=== PATIENT | female | born 1980 | race Caucasian/White ===

== ENCOUNTER 2017-12-21 12:42 | Emergency (ER) | payer MEDICAID, SELFPAY ==
[2017-12-21 13:33] VITALS: BP 107/77; PULSE 92; RESP 18; TEMP 36.2; O2SAT 98; BMI 31.2
--- NOTE | 2017-12-21 14:23 | HMH.EDUTC ---
[facility] [place] Disposition Clinical Impression: Urinary problem Disposition: Home, Self-Care Condition on Discharge: Good Instructions: Urine Culture Additional Instructions: Follow up with family doctor next week for result of urine culture for treatment as recommended by culture Return if needed If you begin to run fever not easily controlled with Motrin or Tylenol or begin to have confusion go straight to ER Time of Disposition: 14:48 Medical Decision Making - Medical Records Medical records reviewed: Yes: I reviewed the patient's medical records. Vital Signs: 12/21/17 13:33 Temperature 97.2 F L Temperature Source Oral Pulse Rate [Right Brachial] 92 H Respiratory Rate 18 Blood Pressure [Right Arm] 107/77 Blood Pressure Mean [Right Arm] 87 Blood Pressure Source [Right Arm] Automatic Cuff Blood Pressure Position [Right Arm] Sitting 02 Sat by Pulse Oximetry 98 Oxygen Delivery Method Room Air - Lab Data Lab results reviewed: Yes: I reviewed the patient's lab results. - Sai Inquiry Pt receiving controlled substance: No Sai was queried for this patient: No - Reevaluation(s) Time: 14:44 Reevaluation #1: Ua showed no leuks or nitrates in urine that would suggest UTI, however foul odor noted to urine Urine was sent for culture and patient advised to follow up with family doctor next week for culture results that way they would know exactly what was in the urine Patient still denies fever, states that she has pain with urination Patient educated to watch for high fever and confusion if any signs or symptoms of sepsis present to go straight to ER [facility] [place] HPI - General Stated complaint: vomitting sore throat ear pain Mode of Arrival: Ambulatory Source of Information: Patient Limitations: No Limitations Description of Symptoms (Recalled from Triage Doc. by RN): n/v, ear pain, headache, burning when urinating HEENT Symptoms (Recalled from RN notes): Yes (ear pain, headache) Resp Symptoms (Recalled from RN notes): No Skin Symptoms (Recalled from RN notes): No MS Symptoms (Recalled from RN notes): No Functional Status (Recalled from RN notes): na - History of Present Illness Provider Complaint: Patient state that she has been having pain with urination, and feeling like she has to go often State that she has had several UTI in the past and this feels alot like they did States that she has been drinking lots of fluids but it has noted helped - Related Data Home Medications Medication Instructions Recorded Confirmed No Known Home Medications [No 12/21/17 12/21/17 Known Home Medications] Allergies Allergy/AdvReac Type Severity Reaction Status Date / Time No Known Allergies Allergy Verified 12/21/17 13:36 - Worker's Comp Is this a Worker's Comp case?: No Is this an [facility] Worker's Comp?: No Is this a [place] Worker's Comp?: No H History I have reviewed the patient's past medical history: Yes Medical History: Denies:: Cancer, Diabetes Mellitus Type 1, Diabetes Mellitus Type 2, MRSA Amputation: No - Social History Educational Level: Completed High School Alcohol Intake: never - Psychiatric History Expresses thoughts of harming self/others: None Suicide Plan Description: No Plan ROS Obtained: Yes All systems reviewed & no additional complaints - Genitourinary Female Genitourinary: Reports dysuria, Reports urinary frequency Physical Exam - General General appearance: alert, in no apparent distress - Respiratory Respiratory exam: Present: normal lung sounds bilaterally. Absent: respiratory distress - Cardiovascular Cardiovascular exam: Present: regular rate, normal rhythm. Absent: JVD - Abdominal Exam Abdominal exam: Present: soft, normal bowel sounds. Absent: distention, tenderness, guarding - Back Exam Back exam: Present: normal inspection. Absent: tenderness - Neurological Exam Neurological exam: Present: alert, oriented X3
[2017-12-21 14:50] LABS: Apearance,Urine Clear (Clear); Color,Urine Yellow (Yellow)
[2017-12-21 14:51] LABS: Bilirubin,Urine Negative (Negative); Blood, Urine 3+ (Negative); Glucose,Urine (UA) Negative (Negative); Ketones,Urine Negative (Negative); PH,Urine 5.5 (5.0-8.5); Protein,Urine Trace (Negative); Specific Gravity, Urine >= 1.030 (1.005-1.030); UTC Leukocyte Esterase,Urine Negative (Negative); Urobilinogen,Urine 0.2 EU/dl (0.2)
[2017-12-21 14:52] LABS: UTC Nitrate,Urine Negative (Negative)
[2017-12-21 14:54] LABS: UTC Influenza A Antigen Negative (Negative); UTC Influenza B Antigen Negative (Negative)
[2017-12-21 15:01] VITALS: BP 107/77; PULSE 92; RESP 18; TEMP 37
[2017-12-21 18:43] LABS: UTC Influenza A Antigen Negative (Negative); UTC Influenza B Antigen Negative (Negative); UTC Strep Screen (Rapid) Negative (Negative)
== END 2017-12-21 15:03 | disposition home or self-care (01) ==
PROVIDERS: Emergency Provider Nurse Practitioner
DX: R31.9 Hematuria, unspecified (principal)
CPT/HCPCS: 81003; 87086; 87088; 87186; 87804; 87880; 99202; 99203

== ENCOUNTER 2017-12-31 09:38 | Emergency (ER) | payer MEDICAID, SELFPAY ==
[2017-12-31 09:56] VITALS: BP 134/79; PULSE 90; RESP 20; TEMP 36.8; O2SAT 98; BMI 30.7
--- NOTE | 2017-12-31 10:04 | HMH.EDUTC ---
[facility] [place] Disposition Clinical Impression: Sinus headache Sinusitis Qualifiers: Sinusitis location: maxillary Chronicity: unspecified Qualified Code(s): J32.0 - Chronic maxillary sinusitis Disposition: Home, Self-Care Condition on Discharge: Good Instructions: Sinusitis, Sinus Headache Additional Instructions: Take medication as prescribed If symptoms return or worsen follow up with family doctor immediately or straight to the ER Return if needed Follow up with family doctor Prescriptions: Amoxicillin/Potassium Clav [Augmentin 875-125 Tablet] 1 tab PO Q12H #14 tab Fluticasone Propionate [Flonase 50mcg nasal spray 16gm] 2 spr NS DAILY #1 bottle Forms: Work/School Release Time of Disposition: 10:50 Medical Decision Making - Medical Records Medical records reviewed: Yes: I reviewed the patient's medical records. Vital Signs: 12/31/17 09:56 Temperature 98.2 F Temperature Source Temporal Artery Scan Pulse Rate [Radial] 90 Respiratory Rate 20 Blood Pressure [Left Arm] 134/79 Blood Pressure Mean [Left Arm] 97 Blood Pressure Source [Left Arm] Automatic Cuff Blood Pressure Position [Left Arm] Sitting 02 Sat by Pulse Oximetry 98 Oxygen Delivery Method Room Air - Lab Data Lab results reviewed: Yes: I reviewed the patient's lab results. Lab Results 12/31/17 09:50: Influenza Type A Ag Negative, Influenza Type B Ag Negative, Strep Scn Rapid Clinic Negative Orders (Tests/Meds): ED MEDICATIONS Generic Name Dose Route Start Last Admin Trade Name Freq PRN Reason Stop Dose Admin Metoclopramide HCl 10 mg 12/31/17 11:00 Reglan 10mg/2ml Vial IVP 01/30/18 10:59 ACHS CHHAYA Discontinued Medications Generic Name Dose Route Start Last Admin Trade Name Freq PRN Reason Stop Dose Admin Diphenhydramine HCl 25 mg 12/31/17 10:18 12/31/17 10:30 Benadryl 25mg Capsule PO 12/31/17 10:19 25 mg ONCE ONE Administration Ketorolac Tromethamine 60 mg 12/31/17 10:18 12/31/17 10:30 Toradol 60mg/2ml Vial IM 12/31/17 10:19 60 mg ONCE ONE Administration Metoclopramide HCl 10 mg 12/31/17 10:29 12/31/17 10:30 Metoclopramide 10mg Tablet PO 12/31/17 10:30 10 mg ONCE ONE Administration ORDERS Category Date Time Status Strep Screen Confirmation Stat Micro 12/31/17 09:50 Received - Sai Inquiry Pt receiving controlled substance: No Sai was queried for this patient: No - Reevaluation(s) Time: 10:44 Reevaluation #1: Patient state that head ache is now gone after medication and she feels much better State that she still feels tender under her eyes but she feels better and ready to go home [facility] [place] HPI - General Stated complaint: vomiting dizzy youssef Mode of Arrival: Ambulatory Source of Information: Patient Limitations: No Limitations Description of Symptoms (Recalled from Triage Doc. by RN): YOUSSEF/V, COUGH, BODY ACHES X 2 DAYS HEENT Symptoms (Recalled from RN notes): Yes Resp Symptoms (Recalled from RN notes): Yes Skin Symptoms (Recalled from RN notes): No MS Symptoms (Recalled from RN notes): No Functional Status (Recalled from RN notes): NA - History of Present Illness Provider Complaint: Patient state that mother had the flu 2 weeks ago and her daughter was diagnosed yesterday State that she has had a headache for 3 days State that she has taken over the counter Tylenol but it has not helped State that she is having pressure like feeling in her eyes and tender under her eyes State that she has been having body aches and sinus congestion State that she has also had cough and drainage that has continued to get worse - Related Data Previous Rx's Medication Instructions Recorded Amoxicillin/Potassium Clav 1 tab PO Q12H #14 tab 12/31/17 [Augmentin 875-125 Tablet] Fluticasone Propionate [Flonase 2 spr NS DAILY #1 bottle 12/31/17 50mcg nasal spray 16gm] Allergies Allergy/AdvReac Type Severity Reaction Status Date / Time No Known Allergies Allergy Megha
--- NOTE | 2017-12-31 10:13 | ED_ITS ---
[facility] [place] Disposition Clinical Impression: Sinus headache Sinusitis Qualifiers: Sinusitis location: maxillary Chronicity: unspecified Qualified Code(s): J32.0 - Chronic maxillary sinusitis Disposition: Home, Self-Care Condition on Discharge: Good Instructions: Sinusitis, Sinus Headache Additional Instructions: Take medication as prescribed If symptoms return or worsen follow up with family doctor immediately or straight to the ER Return if needed Follow up with family doctor Prescriptions: Amoxicillin/Potassium Clav [Augmentin 875-125 Tablet] 1 tab PO Q12H #14 tab Fluticasone Propionate [Flonase 50mcg nasal spray 16gm] 2 spr NS DAILY #1 bottle Forms: Work/School Release Time of Disposition: 10:50 Medical Decision Making - Medical Records Medical records reviewed: Yes: I reviewed the patient's medical records. Vital Signs: 12/31/17 09:56 Temperature 98.2 F Temperature Source Temporal Artery Scan Pulse Rate [Radial] 90 Respiratory Rate 20 Blood Pressure [Left Arm] 134/79 Blood Pressure Mean [Left Arm] 97 Blood Pressure Source [Left Arm] Automatic Cuff Blood Pressure Position [Left Arm] Sitting 02 Sat by Pulse Oximetry 98 Oxygen Delivery Method Room Air - Lab Data Lab results reviewed: Yes: I reviewed the patient's lab results. Lab Results 12/31/17 09:50: Influenza Type A Ag Negative, Influenza Type B Ag Negative, Strep Scn Rapid Clinic Negative Orders (Tests/Meds): ED MEDICATIONS Generic Name Dose Route Start Last Admin Trade Name Freq PRN Reason Stop Dose Admin Metoclopramide HCl 10 mg 12/31/17 11:00 Reglan 10mg/2ml Vial IVP 01/30/18 10:59 ACHS CHHAYA Discontinued Medications Generic Name Dose Route Start Last Admin Trade Name Freq PRN Reason Stop Dose Admin Diphenhydramine HCl 25 mg 12/31/17 10:18 12/31/17 10:30 Benadryl 25mg Capsule PO 12/31/17 10:19 25 mg ONCE ONE Administration Ketorolac Tromethamine 60 mg 12/31/17 10:18 12/31/17 10:30 Toradol 60mg/2ml Vial IM 12/31/17 10:19 60 mg ONCE ONE Administration Metoclopramide HCl 10 mg 12/31/17 10:29 12/31/17 10:30 Metoclopramide 10mg Tablet PO 12/31/17 10:30 10 mg ONCE ONE Administration ORDERS Category Date Time Status Strep Screen Confirmation Stat Micro 12/31/17 09:50 Received - Sai Inquiry Pt receiving controlled substance: No Sai was queried for this patient: No - Reevaluation(s) Time: 10:44 Reevaluation #1: Patient state that head ache is now gone after medication and she feels much better State that she still feels tender under her eyes but she feels better and ready to go home [facility] [place] [facility] [place] HPI - General Stated complaint: vomiting dizzy youssef Mode of Arrival: Ambulatory Source of Information: Patient Limitations: No Limitations Description of Symptoms (Recalled from Triage Doc. by RN): YOUSSEF/V, COUGH, BODY ACHES X 2 DAYS HEENT Symptoms (Recalled from RN notes): Yes Resp Symptoms (Recalled from RN notes): Yes Skin Symptoms (Recalled from RN notes): No MS Symptoms (Recalled from RN notes): No Functional Status (Recalled from RN notes): NA - History of Present Illness Provider Complaint: Patient state that mother had the flu 2 weeks ago and her daughter was diagnosed
[2017-12-31 10:24] LABS: UTC Influenza A Antigen Negative (Negative); UTC Influenza B Antigen Negative (Negative); UTC Strep Screen (Rapid) Negative (Negative)
[2017-12-31 10:52] VITALS: BP 134/79; PULSE 90; RESP 20; TEMP 36.8; O2SAT 98
== END 2017-12-31 10:57 | disposition home or self-care (01) ==
PROVIDERS: Emergency Provider Nurse Practitioner
DX: J32.0 Chronic maxillary sinusitis (principal)
CPT/HCPCS: 87804; 87880; 96372; 99203

== ENCOUNTER 2018-01-30 10:25 | Emergency (ER) | payer MEDICAID, SELFPAY ==
[2018-01-30 10:32] VITALS: BP 116/71; PULSE 96; RESP 20; TEMP 36.6; O2SAT 98; BMI 30.7
[2018-01-30 10:44] LABS: UTC Influenza A Antigen Negative (Negative); UTC Influenza B Antigen Negative (Negative); UTC Strep Screen (Rapid) Negative (Negative)
--- NOTE | 2018-01-30 11:12 | HMH.EDUTC ---
[facility] [place] Clinical Impression: Viral upper respiratory illness, Vomiting and diarrhea Disposition: Home, Self-Care Condition on Discharge: Good Instructions: Sore Throat, Diarrhea, DI for Vomiting -- Adult, Ondansetron Additional Instructions: * Monitor Temp. Tylenol and/or Ibuprofen as needed. ER if fever is no less than 101 despite alternating Tylenol and Ibuprofen * Encourage fluids, water, Gatorade, powerade, pedialyte if /toddler/or child * Warm salt water gargles for throat irritation *Warm fluids *Sore throat lozenges *Sleep elevated *humidifier or vaporizer Lots of rest Increase fluids, water, Gatorade, powerade *Your throat swab was sent to lab for culture. Those results area typically sent to your primary care physician. Be sure to follow up in 2-3 days if no improvement so they can review those results and treat if necessary If you dont have primary care I recommend you get one, but in the mean time you will have to return to a walk in clinic Follow up IMMEDIATELY for new or worsening of symptoms OR no noticeable improvement over the next 48-72 hours. 911 immediately for any life threatening symptoms such as chest pain or difficulty breathing ? Drink extra fluids with and between meals. If you have difficulty drinking, try very small amounts of water or suck on ice chips. ? Avoid fruit juices, as these do not replace minerals and can actually increase diarrhea. ? Children and adults can use sports drinks to replenish electrolytes. Younger children and infants should use products formulated for children, like oral rehydration solutions. ? Eat food in small amounts and let your stomach recover. ? Get lots of rest. You may feel tired or weak. ? Check with your doctor before taking medications or giving them to children. Never give aspirin to children or teenagers with a viral illness. This can cause Dewayne syndrome, a potentially life-threatening condition. Prescriptions: Ondansetron [Zofran 4mg ODT] 4 mg PO Q8H #20 tab.rapdis Forms: Work/School Release Time of Disposition: 11:22 Medical Decision Making - Medical Records Medical records reviewed: Yes: I reviewed the patient's medical records. - Sai Inquiry Pt receiving controlled substance: No Vital Signs: 01/30/18 10:32 Temperature 97.9 F Temperature Source Temporal Artery Scan Pulse Rate [Brachial] 96 H Respiratory Rate 20 Blood Pressure [Right Arm] 116/71 Blood Pressure Mean [Right Arm] 86 Blood Pressure Source [Right Arm] Automatic Cuff Blood Pressure Position [Right Arm] Sitting 02 Sat by Pulse Oximetry 98 Oxygen Delivery Method Room Air - Lab Data Lab results reviewed: Yes: I reviewed the patient's lab results. Lab Results 01/30/18 10:35: Influenza Type A Ag Negative, Influenza Type B Ag Negative, Strep Scn Rapid Clinic Negative Orders (Tests/Meds): ORDERS Category Date Time Status Strep Screen Confirmation Stat Micro 01/30/18 10:35 Received [facility] [place] HPI - General Stated complaint: Throat & Ear & Body Pain Time Seen by Provider: 01/30/18 11:00 Mode of Arrival: Ambulatory Source of Information: Patient Limitations: No Limitations Description of Symptoms (Recalled from Triage Doc. by RN): WOKE UP WITH A SORE THROAT, BODY ACHES, EAR PAIN AND VOMITING. HEENT Symptoms (Recalled from RN notes): Yes Resp Symptoms (Recalled from RN notes): No Skin Symptoms (Recalled from RN notes): No MS Symptoms (Recalled from RN notes): No Functional Status (Recalled from RN notes): NA - History of Present Illness Provider Complaint: Patient presents with body aches, vomiting, diarrhea, and sore throat since this morning. She denies hematemesis and melena. She denies sick contacts as well. She hasn't taken anything for symptoms and decided to come here on her way to work due to vomiting 5-6 times this morning. - Related Data Previous Rx's Medication Instructions Recorded Ondansetron [Zofran 4mg ODT] 4 mg PO Q8H
--- NOTE | 2018-01-30 11:15 | ED_ITS ---
[facility] [place] Disposition Clinical Impression: Viral upper respiratory illness, Vomiting and diarrhea Disposition: Home, Self-Care Condition on Discharge: Good Instructions: Sore Throat, Diarrhea, DI for Vomiting -- Adult, Ondansetron Additional Instructions: * Monitor Temp. Tylenol and/or Ibuprofen as needed. ER if fever is no less than 101 despite alternating Tylenol and Ibuprofen * Encourage fluids, water, Gatorade, powerade, pedialyte if /toddler/or child * Warm salt water gargles for throat irritation *Warm fluids *Sore throat lozenges *Sleep elevated *humidifier or vaporizer Lots of rest Increase fluids, water, Gatorade, powerade *Your throat swab was sent to lab for culture. Those results area typically sent to your primary care physician. Be sure to follow up in 2-3 days if no improvement so they can review those results and treat if necessary If you don? t have primary care I recommend you get one, but in the mean time you will have to return to a walk in clinic Follow up IMMEDIATELY for new or worsening of symptoms OR no noticeable improvement over the next 48-72 hours. 911 immediately for any life threatening symptoms such as chest pain or difficulty breathing ? Drink extra fluids with and between meals. If you have difficulty drinking, try very small amounts of water or suck on ice chips. ? Avoid fruit juices, as these do not replace minerals and can actually increase diarrhea. ? Children and adults can use sports drinks to replenish electrolytes. Younger children and infants should use products formulated for children, like oral rehydration solutions. ? Eat food in small amounts and let your stomach recover. ? Get lots of rest. You may feel tired or weak. ? Check with your doctor before taking medications or giving them to children. Never give aspirin to children or teenagers with a viral illness. This can cause Dariel?s syndrome, a potentially life-threatening condition. Prescriptions: Ondansetron [Zofran 4mg ODT] 4 mg PO Q8H #20 tab.rapdis Forms: Work/School Release Time of Disposition: 11:22 Medical Decision Making - Medical Records Medical records reviewed: Yes: I reviewed the patient's medical records. - Sai Inquiry Pt receiving controlled substance: No Vital Signs: 01/30/18 10:32 Temperature 97.9 F Temperature Source Temporal Artery Scan Pulse Rate [Brachial] 96 H Respiratory Rate 20 Blood Pressure [Right Arm] 116/71 Blood Pressure Mean [Right Arm] 86 Blood Pressure Source [Right Arm] Automatic Cuff Blood Pressure Position [Right Arm] Sitting 02 Sat by Pulse Oximetry 98 Oxygen Delivery Method Room Air - Lab Data Lab results reviewed: Yes: I reviewed the patient's lab results. Lab Results 01/30/18 10:35: Influenza Type A Ag Negative, Influenza Type B Ag Negative, Strep Scn Rapid Clinic Negative Orders (Tests/Meds): ORDERS Category Date Time Status Strep Screen Confirmation Stat Micro 01/30/18 10:35 Received [facility] [place] HPI - General Stated complaint: Throat & Ear & Body Pain Time Seen by Provider: 01/30/18 11:00 Mode of Arrival: Ambulatory Source of Information: Patient Limitations: No Limitations Description of Symptoms (Recalled from Triage Doc. by RN): WOKE UP WITH A SORE THROAT, BODY ACHES, EAR PAIN AND VOMITING. HEENT Symptoms (Recalled from RN notes): Yes Resp Symptoms (Recalled from RN notes): No Skin Symptoms (Recalled from RN notes): No MS Symp
[2018-01-30 11:28] VITALS: BP 118/74; PULSE 94; RESP 20; TEMP 36.7; O2SAT 98
== END 2018-01-30 11:31 | disposition home or self-care (01) ==
PROVIDERS: Emergency Provider Nurse Practitioner
DX: J06.9 Acute upper respiratory infection, unspecified (principal); R11.10 Vomiting, unspecified; R19.7 Diarrhea, unspecified; F17.210 Nicotine dependence, cigarettes, uncomplicated
CPT/HCPCS: 87804; 87880; 99202

== ENCOUNTER → 2018-07-09 09:34 | Outpatient (CLI) | payer MEDICAID, SELFPAY ==
[2018-07-09 09:51] LABS: Basophils % 0.3 % (0.1-2.0); Eosinophils # 0.2 K/mm3 (0.0-0.4); Eosinophils % 2.3 % (0.1-12.0); Hematocrit 39.3 % (37.0-47.0); Hemoglobin 12.8 g/dL (12.2-16.2); Lymphocytes # 1.4 K/mm3 (0.7-4.5); Lymphocytes % 17.4 K/mm3 (10-50); Mean Corpuscular HGB Conc 32.6 g/dL (31.8-35.4); Mean Corpuscular Hemoglobin 29.5 pg (27.0-31.2); Mean Corpuscular Volume 90.4 fl (81-99); Monocytes # 0.5 K/mm3 (0.1-1.0); Monocytes % 6.5 % (1.7-9.3); Neutrophils # 5.9 K/mm3 (1.8-7.8); Neutrophils % 73.4 % (37.0-80.0); Platelet Count 315 K/mm3 (142-424); Red Blood Count 4.35 M/mm3 (4.20-5.40); Red Cell Distribution Width 12.9 % (11.5-17.5)
[2018-07-09 10:34] LABS: Anion Gap 13.6 mEq/L (5-15); Blood Urea Nitrogen 15 mg/dL (7-18); Calcium 8.6 mg/dL (8.5-10.1); Carbon Dioxide 26 mmol/L (21.0-32.0); Chloride 108 mmol/L (98-107); Creatinine,Serum 0.78 mg/dL (0.55-1.02); Estimated Glomerular Filt Rate 82 ml/min (>60); GFR (African American) 99 ML/MIN (>60); Glucose 116 mg/dL (74-106); Potassium 4.6 mmoL/L (3.5-5.1); Sodium 143 mmol/L (136-145)
== END ==
PROVIDERS: Visit Provider Nurse Practitioner Obstetrics & Gynecology
DX: N92.0 Excessive and frequent menstruation with regular cycle (principal); R10.2 Pelvic and perineal pain; Z01.818 Encounter for other preprocedural examination
CPT/HCPCS: 36415; 80048; 85025

== ENCOUNTER 2021-06-10 21:51 | Emergency (ER) | payer OTHER, SELFPAY ==
[2021-06-10 21:52] VITALS: BP 104/79; PULSE 85; RESP 14; TEMP 36.6; O2SAT 98; BMI 30.4
--- NOTE | 2021-06-10 22:16 | XR_ITS ---
PROCEDURE INFORMATION: Exam: XR Left Elbow Exam date and time: 06/10/2021 10:16 PM Age: 41 years old Clinical indication: Injury or trauma; Fall; Blunt trauma (contusions or hematomas); Injury date: 06/10/2021; Patient HX: Fell landed on left elbow pain now; Additional info: Injury from fall TECHNIQUE: Imaging protocol: XR Left elbow. Views: 3 or more views. COMPARISON: No relevant prior studies available. FINDINGS: Bones/joints: Bones appear intact and normally aligned with normal mineralization. No significant arthritic deformities. Bulging of the posterior fat pad at the elbow suggesting an underlying joint effusion. There are no lytic skeletal lesions seen. Soft tissues: Mild soft tissue edema. No radiopaque foreign bodies. No pathologic soft tissue calcification. IMPRESSION: 1. No acute fracture or dislocation. 2. Elbow joint effusion.
[2021-06-10 23:00] VITALS: BP 103/65; PULSE 65; RESP 16; O2SAT 99
[2021-06-11 00:26] VITALS: BP 109/72; PULSE 64; RESP 16; TEMP 36.6; O2SAT 98
--- NOTE | 2021-06-11 00:32 | HMH.EDUPEXT ---
ED Disposition Clinical Impression: Contusion of elbow, left Qualifiers: Encounter type: initial encounter Qualified Code(s): S50.02XA - Contusion of left elbow, initial encounter Disposition: Home, Self-Care Condition on Discharge: Good Instructions: DI for Elbow Sprain Additional Instructions: see ortho and pcp for follo wup Referrals: Cecilio De León MD [Primary Care Provider] - - Critical Care Critical Care Time: No Attestation: On 06/10/21, the high probability of a clinically significant, sudden or life threatening deterioration of the following system(s) required my full and direct attention, intervention and personal management. The time I documented below is in addition to time spent performing reported procedures but includes the following listed in this critical care notation. Medical Decision Making - Medical Records Medical records reviewed: Yes: I reviewed the patient's medical records. - Sai Inquiry Pt receiving controlled substance: No Vital Signs: 06/10/21 21:52 06/10/21 23:00 06/11/21 00:26 Temperature 97.9 F 97.9 F Temperature Source Oral Oral Pulse Rate 65 64 Pulse Rate [Right Radial] 85 Respiratory Rate 14 16 16 Blood Pressure 103/65 L 109/72 L Blood Pressure [Right Arm] 104/79 L Blood Pressure Mean [Right Arm] 87 Blood Pressure Source Automatic Cuff Blood Pressure Source [Right Arm] Automatic Cuff Blood Pressure Position Sitting Blood Pressure Position [Right Arm] Sitting 02 Sat by Pulse Oximetry 98 99 Oxygen Delivery Method Room Air Room Air Room Air - Lab Data Lab results reviewed: Yes: I reviewed the patient's lab results. Orders (Tests/Meds): ED MEDICATIONS Discontinued Medications Generic Name Dose Route Start Last Admin Trade Name Nav PRN Reason Stop Dose Admin Acetaminophen 1,000 mg 06/10/21 22:24 06/10/21 22:26 Acetaminophen 500mg Tab PO 06/10/21 22:25 1,000 mg ONCE ONE Administration Acetaminophen/Codeine Phosphate 1 gigi 06/11/21 00:17 06/11/21 00:19 Acetaminophen 300mg W/Codeine 30mg Take Home Pack (6) PO 06/11/21 00:18 1 gigi ONCE ONE Administration Ibuprofen 600 mg 06/10/21 22:24 06/10/21 22:26 Ibuprofen 600 Mg Tablet PO 06/10/21 22:25 600 mg ONCE ONE Administration Indomethacin 25 mg 06/11/21 00:17 06/11/21 00:19 Indomethacin 25 Mg Capsule PO 06/11/21 00:18 25 mg ONCE ONE Administration - Radiology Data #1 Image(s): Elbow Image Reviewed: Yes I reviewed the patient's radiology image, Yes I have reviewed radiologist's interpretation Preliminary Findings: Abnormal Medical Decision Narrative: no fx seen - splint and refer to ortho Upper Extremity HPI - General Chief Complaint: Extremity Injury, Upper Stated Complaint: AO 06/10@2130 fell injured L arm Time Seen by Provider: 06/10/21 23:00 Mode of Arrival: Ambulatory Source of Information: Patient, Medical Record Limitations: No Limitations Description of Symptoms (Recalled from ER Triage Doc. by RN): pt slipped on her steps while taking groceries in tonight, landing on her left elbow. Pt denies hitting head. Denies any hip or back pain. Only c/o pain is in left elbow. She denies shoulder or wrist pain. Positive distal pulses present. - History of Present Illness HPI narrative: slip fall with acute lt elbow injury complaint: injury to: left, elbow Onset (ago): hour(s) Other Extremity Injury: Left: elbow Other injuries: none Handedness: right Place: other (formerly [facility]) Severity: moderate Context: fall Associated symptoms: denies other symptoms - Related Data Home Medications Medication Instructions Recorded Confirmed No Known Home Medications 06/11/21 06/11/21 Allergies Allergy/AdvReac Type Severity Reaction Status Date / Time No Known Allergies Allergy Verified 11/06/18 09:27 [facility] History - Hepatitis A Screen Drug use history?: No High risk sexual behaviors?: No History of sexually t
== END 2021-06-11 00:26 | disposition home or self-care (01) ==
PROVIDERS: Emergency Provider Emergency Medicine; PCP Emergency Medicine
DX: S50.02XA Contusion of left elbow, initial encounter (principal); W10.9XXA Fall (on) (from) unspecified stairs and steps, initial encounter; Y92.019 Unspecified place in single-family (private) house as the place of occurrence of the external cause
CPT/HCPCS: 73080; 99283

== ENCOUNTER 2022-09-23 16:17 | Emergency (ER) | payer OTHER, SELFPAY ==
[2022-09-23 16:30] VITALS: BP 114/72; PULSE 123; RESP 18; O2SAT 96
[2022-09-23 16:41] VITALS: BP 114/72; PULSE 102; RESP 20; TEMP 37.8; O2SAT 97; BMI 29.7
[2022-09-23 17:00] VITALS: BP 120/81; PULSE 121; RESP 16; O2SAT 95
[2022-09-23 17:01] LABS: Coronavirus 19, PCR Not Detected (NotDetected); Influenza A, PCR Not Detected (NotDetected); Influenza B, PCR Not Detected (NotDetected)
[2022-09-23 17:05] LABS: Basophils % 0.2 % (0.1-2.0); Eosinophils # 0.2 K/mm3 (0.0-0.4); Hematocrit 42.3 % (37.0-47.0); Hemoglobin 13.4 g/dL (12.2-16.2); Lymphocytes # 0.7 K/mm3 (0.7-4.5); Lymphocytes % 4.5 % (10-50); Mean Corpuscular HGB Conc 31.6 g/dL (31.8-35.4); Mean Corpuscular Hemoglobin 29.3 pg (27.0-31.2); Mean Corpuscular Volume 92.5 fl (81-99); Mean Platelet Volume 7.3 fl (7.4-10.4); Monocytes # 0.5 K/mm3 (0.1-1.0); Monocytes % 2.8 % (1.7-9.3); Neutrophils # 14.8 K/mm3 (1.8-7.8); Neutrophils % 91.4 % (37.0-80.0); Platelet Count 363 K/mm3 (142-424); Red Blood Count 4.58 M/mm3 (4.20-5.40); Red Cell Distribution Width 12.4 % (11.5-17.5); White Blood Count 16.2 K/mm3 (4.8-10.8)
[2022-09-23 17:07] LABS: Chloride 106 mmol/L (98-107); Sodium 137 mmol/L (136-145)
[2022-09-23 17:08] LABS: Potassium 3.8 mmoL/L (3.5-5.1)
[2022-09-23 17:09] LABS: MANUAL DIFFERENTIAL MANUAL DIFFERENTIAL (MANUAL DIFF)
[2022-09-23 17:10] LABS: Alanine Aminotransferase 20 U/L (12-78); Albumin Level 4.2 g/dl (3.5-5.0); Albumin/Globulin Ratio 1.3 (1.1-1.8); Alkaline Phosphatase 104 U/L (38-126); Anion Gap 10.8 mEq/L (5-15); Aspartate Amino Transferase 30 U/L (14-36); Bilirubin,Total 1.1 mg/dl (0.2-1.3); Blood Urea Nitrogen 12 mg/dl (7-17); Calcium 9.1 mg/dl (8.4-10.2); Carbon Dioxide 24 mmol/L (22.0-30.0); Creatinine Clearance Estimated 88 mL/min (50-200); Estimated Glomerular Filt Rate 68 ml/min (>60); GFR (African American) 83 ML/MIN (>60); Globulin 3.2 g/dL (1.3-3.2); Glucose 113 mg/dl (74-100); Total Protein,Serum 7.4 g/dl (6.3-8.2)
[2022-09-23 17:31] VITALS: BP 117/69; PULSE 121; RESP 20; O2SAT 98
[2022-09-23 17:58] LABS: Lymphocytes % 7 % (10-50); Neutrophils % 89 % (42-76); Platelet Estimate Normal; RBC Morphology Normal; Total Cells Counted 100
[2022-09-23 18:00] VITALS: BP 113/60; PULSE 117; RESP 18; O2SAT 94
--- NOTE | 2022-09-23 18:20 | CT_ITS ---
PROCEDURE INFORMATION: Exam: CT Abdomen And Pelvis With Contrast Exam date and time: 09/23/2022 6:31 PM Age: 42 years old Clinical indication: Nausea and vomiting; Prior surgery; Surgery type: Tubal; Additional info: N/v/d TECHNIQUE: Imaging protocol: Computed tomography of the abdomen and pelvis with contrast. Radiation optimization: All CT scans at this facility use at least one of these dose optimization techniques: automated exposure control; mA and/or kV adjustment per patient size (includes targeted exams where dose is matched to clinical indication); or iterative reconstruction. Contrast material: ISOVUE; Contrast volume: 75 ml; Contrast route: IV; [facility] pelvis wo con 06/19/2018 9:12 AM FINDINGS: Liver: Normal. No mass. Gallbladder and bile ducts: Normal. No calcified stones. No ductal dilation. Pancreas: Normal. No ductal dilation. Spleen: Normal. No splenomegaly. Adrenal glands: Normal. No mass. Kidneys and ureters: Normal. No hydronephrosis. Stomach and bowel: Diffuse colonic wall thickening which could be due to pancolitis or lack of distention more likely. No small bowel obstruction. Appendix: Appendectomy. Intraperitoneal space: Unremarkable. No free air. No significant fluid collection. Vasculature: Unremarkable. No abdominal aortic aneurysm. Lymph nodes: Unremarkable. No enlarged lymph nodes. Urinary bladder: Unremarkable as visualized. Reproductive: Hysterectomy. Bones/joints: Unremarkable. No acute fracture. Soft tissues: Unremarkable. IMPRESSION: 1. Low-grade colitis versus lack of distention of the colon. 2. Normal kidneys. 3. Gallbladder normal.
--- NOTE | 2022-09-23 18:25 | PC.NURSE ---
pt to radiology
[2022-09-23 18:31] LABS: Lipase 28 U/L (23-300)
--- NOTE | 2022-09-23 18:34 | PC.NURSE ---
back from radiology
--- NOTE | 2022-09-23 18:55 | XR_ITS ---
PROCEDURE INFORMATION: Exam: XR Chest Exam date and time: 09/23/2022 6:55 PM Age: 42 years old Clinical indication: Cough TECHNIQUE: Imaging protocol: Radiologic exam of the chest. Views: 2 views. COMPARISON: CR CXR2V XR chest 2V 09/22/2018 5:58 PM FINDINGS: Lungs: Subtle interstitial haziness could reflect interstitial pneumonia. No consolidation. Granulomatous change Pleural spaces: Unremarkable. No pleural effusion. No pneumothorax. Heart/Mediastinum: Unremarkable. No cardiomegaly. Bones/joints: Unremarkable. IMPRESSION: Subtle interstitial haziness could reflect interstitial pneumonia.
--- NOTE | 2022-09-23 18:56 | HMH.EDGENADL ---
Discharge Plan Disposition Patient Disposition: Home, Self-Care Condition: Fair Prescriptions Prescriptions: New cefdinir 300 mg capsule 300 mg PO BID 10 Days Qty: 20 0RF azithromycin [Zithromax] 250 mg tablet 250 mg PO DAILY 4 Days Qty: 4 0RF Rx Instructions: start on day 2 of therapy ondansetron 4 mg tablet,disintegrating 4 mg PO Q8H PRN (Reason: nausea and vomiting) Qty: 10 0RF Referrals Follow up/Referrals: Cecilio De León MD [Primary Care Provider] - See instructions Activity Restrictions/Add. Instructions Additional Instructions/Restrictions: Zofran as needed for nausea and vomiting. Rest, drink plenty of fluids. Tylenol or ibuprofen for pain or fever. Additional instructions for PNEUMONIA: Take antibiotics as prescribed. See your physician as soon as possible for further evaluation. Return immediately if you have an uncontrollable fever greater than 102 degrees, difficulty breathing or shortness of breath, persistent vomiting, or severe chest pain. Clinical Impressions Clinical Impression: Pneumonia, Nausea vomiting and diarrhea Instructions Patient Instructions: DI for Diarrhea and Traveler's Diarrhea -- Adult, DI for Nausea -- Adult, DI for Pneumonia -- Adult Discharge ED Provider: Adan Elias General Adult HPI General Chief complaint: Nausea/Vomiting/Diarrhea Stated complaint: Vomiting,Headache Time Seen by Provider: 09/23/22 18:42 Mode of Arrival: Ambulatory Source of Information: Patient Limitations: No Limitations Description of Symptoms (Recalled from ER Triage Doc. by RN): pt to ed c/o body ahces, nausea and vomiting x2 days. History of Present Illness HPI narrative: Patient states that she was fine until this morning. States that she woke up hurting everywhere. Headache, body aches, back pain, sore throat, abdominal pain across her lower abdomen. She is felt chilled, but has not taken her temperature at home. She has had nausea and vomiting and diarrhea. Denies blood in diarrhea. She has a cough, rhinorrhea. Denies urinary symptoms. No known recent exposures. Related Data Previous Rx's Medication Instructions Recorded azithromycin 250 mg tablet 250 mg PO DAILY 4 days #4 tabs 09/23/22 (Zithromax) cefdinir 300 mg capsule 300 mg PO BID 10 days #20 caps 09/23/22 ondansetron 4 mg disintegrating 4 mg PO Q8H PRN nausea and 09/23/22 tablet vomiting #10 tabs Allergies Allergy/AdvReac Type Severity Reaction Status Date / Time No Known Allergies Allergy Verified 11/06/18 09:27 PFSH PFS Social History Smoking Status: Never smoker alcohol intake: never current occupational status: employed Travel in the last 8 weeks: None current occupational exposures/hazards: Yes caffeine: No ROS Obtained: Yes Systems reviewed as appropriate & no additional complaints except as documented Constitutional Constitutional: Reports body ache, Reports chills, Reports headache(s) and Denies weakness ENT Ears, Nose, Mouth, and Throat: Reports headache(s), Reports nasal discharge and Reports sore throat Cardiovascular Cardiovascular: Denies chest pain Respiratory Respiratory: Denies shortness of breath and Reports cough Gastrointestinal Gastrointestingal: Reports abdominal pain, diarrhea and vomiting; Denies constipation Genitourinary Female Genitourinary: Denies difficulty voiding, Denies dysuria and Denies flank pain Musculoskeletal Musculoskeletal: Denies numbness Neurologic Neurologic: Reports headache(s), Denies numbness and Denies weakness Physical Exam General General appearance: alert and in no apparent distress Head Head exam: atraumatic and normocephalic Eye Eye exam: Present normal appearance and EOMI ENT ENT exam: Present normal oropharynx and mucous membranes moist Neck Neck exam: Present normal inspection and trachea midline Chest Chest inspection: Present normal inspection and symmetric chest wall rise Respiratory Resp
[2022-09-23 19:18] LABS: Microscopic, Urine URINE MICROSCOPIC (MICROSCOPIC)
[2022-09-23 19:24] LABS: Appearance,Urine CLEAR (Clear); Bilirubin,Urine Negative (Negative); Blood, Urine 2+ (Negative); Color,Urine YELLOW (Yellow); Glucose,Urine (UA) Negative (Negative); Ketones,Urine Negative (Negative); Leukocyte Esterase,Urine Negative (Negative); Nitrate,Urine Negative (Negative); PH,Urine 5.5 (5.0-8.5); Protein,Urine Negative (Negative); Specific Gravity, Urine 1.015 (1.005-1.030); Urobilinogen,Urine 0.2 EU/dl (0.2)
[2022-09-23 19:29] LABS: Strep Scrn Group A (Rapid) Negative (Negative)
--- NOTE | 2022-09-23 19:30 | PC.NURSE ---
Cultures and lactic drawn and sent to lab
--- NOTE | 2022-09-23 19:32 | PC.NURSE ---
Dr. Elias at [facility]
[2022-09-23 19:39] LABS: Amorphous Sediment,Urine 1+ /lpf; Bacteria,Urine 1+ /lpf
--- NOTE | 2022-09-23 19:44 | PC.NURSE ---
Pt father updated after receiving permission from pt to do so
[2022-09-23 20:00] LABS: Lactic Acid 0.8 mmol/L (0.7-2.1)
--- NOTE | 2022-09-23 20:15 | PC.NURSE ---
Rechecked pt condition. No needs voiced at this time.
[2022-09-23 21:05] VITALS: BP 110/74; PULSE 100; RESP 16; TEMP 37.1; O2SAT 97
== END 2022-09-23 21:07 | disposition home or self-care (01) ==
PROVIDERS: Emergency Provider Emergency Medicine; PCP Emergency Medicine
DX: J18.9 Pneumonia, unspecified organism (principal); R11.2 Nausea with vomiting, unspecified; R19.7 Diarrhea, unspecified
CPT/HCPCS: 71046; 74177; 80053; 81001; 83605; 83690; 85007; 85025; 87040; 87430; 96365; 96367; 96375; 99285; C9803; J0456; J0696; J2405; Q9967; U0003; U0005

== ENCOUNTER 2023-05-22 16:41 | Emergency (ER) | payer OTHER, SELFPAY ==
[2023-05-22 16:42] VITALS: BP 116/78; PULSE 80; RESP 16; TEMP 36.6; O2SAT 96; BMI 31.6
--- NOTE | 2023-05-22 17:18 | EXP.UTC ---
Discharge Plan Disposition Patient Disposition: Home, Self-Care Condition: Good Prescriptions Prescriptions: New triamcinolone acetonide 0.1 % cream 1 applic topical BID PRN (Reason: itching) Qty: 30 0RF methylprednisolone 4 mg Tablets,Dose Pack 4 mg PO DIRECTED Qty: 21 0RF Referrals Follow up/Referrals: Cecilio De León MD [Primary Care Provider] - See instructions Activity Restrictions/Add. Instructions Additional Instructions/Restrictions: Try to identify and avoid contact with the offending substance. Don't start the oral steroids until tomorrow. Continue the diphenhydramine (benedryl). It will make you drowsy, so don't drive or operate heavy machinery after taking it. Don't put the topical steroids (triamcinolone) on your face or your groin. Follow up with your regular doctor. GO TO THE ER FOR ANY WORSENING SYMPTOMS OR CONCERNS Clinical Impressions Clinical Impression: Contact dermatitis Instructions Patient Instructions: Contact Dermatitis, DI for Contact Dermatitis Discharge ED Provider: Moody Cao [facility] General Stated complaint: Rash Mode of Arrival: Ambulatory Source of Information: Patient Limitations: No Limitations Time Seen by Provider: 05/22/23 17:18 Description of Symptoms (Recalled from Triage Doc. by RN): Patient states she has a rash all over her body. States she got some chemicals on her from work on . HEENT Symptoms (Recalled from RN notes): No Resp Symptoms (Recalled from RN notes): No Skin Symptoms (Recalled from RN notes): Yes MS Symptoms (Recalled from RN notes): No Functional Status (Recalled from RN notes): wnl Related Data Previous Rx's Medication Instructions Recorded methylprednisolone 4 mg tablets in 4 mg PO DIRECTED #21 tabs 05/22/23 a dose pack triamcinolone acetonide 0.1 % 1 applic topical BID PRN itching 05/22/23 topical cream #30 grams Allergies Allergy/AdvReac Type Severity Reaction Status Date / Time No Known Allergies Allergy Verified 10/09/22 11:38 Worker's Comp Is this a Worker's Comp case?: No [facility] Disclaimer: The information contained in this section may have been updated after the patient was seen, as this information can be updated by other users. Medical History (Updated 05/22/23 @ 17:42 by Moody Cao APRN) delivery delivered Surgical History (Updated 10/09/22 @ 11:41 by ABRAM Garcia) H/O: hysterectomy Social History (Updated 10/09/22 @ 11:42 by ABRAM Garcia) Smoking Status: Never smoker alcohol intake: never substance use type: denies use current occupational status: employed Travel in the last 8 weeks: None current occupational exposures/hazards: Yes caffeine: No ROS Obtained: Yes All systems reviewed & no additional complaints except as documented Constitutional Constitutional: Denies chills and Denies fever(s) Eyes Eyes: Denies eye discharge ENT Ears, Nose, Mouth, and Throat: Denies dizziness, Denies otalgia and Denies sore throat Cardiovascular Cardiovascular: Denies chest pain Respiratory Respiratory: Denies shortness of breath, Denies chest congestion, Denies cough, Denies stridor and Denies wheezing Gastrointestinal Gastrointestingal: Denies nausea or vomiting Musculoskeletal Musculoskeletal: Reports system reviewed and no additional complaints, except as documented and Denies arthralgias Integumentary/Breasts Skin/Breast: Reports as per HPI and Reports rash Neurologic Neurologic: Denies dizziness and Denies paresthesias Allergic/Immunologic Allergic/Immunologic: Denies wheezing Physical Exam General General appearance: alert and in no apparent distress Head Head exam: atraumatic, normocephalic and normal inspection Eye Eye exam: Present normal appearance, PERRL and EOMI ENT ENT exam: Present normal exam, normal oropharynx, mucous membranes moist, TM's normal bilaterally and normal external ear exam Neck Neck exam: Pr
[2023-05-22 17:48] VITALS: BP 116/78; PULSE 80; RESP 16; TEMP 36.6; O2SAT 96
== END 2023-05-22 17:49 | disposition home or self-care (01) ==
PROVIDERS: Emergency Provider Nurse Practitioner Family; PCP Emergency Medicine
DX: L25.9 Unspecified contact dermatitis, unspecified cause (principal)
CPT/HCPCS: 96372; 99204; 99212; G0463

== ENCOUNTER 2023-07-18 08:35 | Emergency (ER) | payer OTHER, SELFPAY ==
[2023-07-18 09:10] VITALS: BP 107/68; PULSE 76; RESP 16; TEMP 36.5; O2SAT 98; BMI 33.0
--- NOTE | 2023-07-18 09:28 | EXP.UTC ---
Discharge Plan Disposition Patient Disposition: Home, Self-Care Condition: Good Referrals Follow up/Referrals: Cecilio De León MD [Primary Care Provider] - See instructions Activity Restrictions/Add. Instructions Additional Instructions/Restrictions: Make sure to follow up with your Family Doctor if pain continues Return if needed Straight to ER if pain worsens or any life threatening symptoms Clinical Impressions Clinical Impression: Spasm of stomach Stand Alone Forms Stand Alone Forms: Work/School Release Instructions Patient Instructions: Acute Abdominal Pain, DI for Abdominal Pain-Adult Discharge ED Provider: Mary Whiteside Juan Miguel [facility] HPI General Stated complaint: left side pain to stomach, no accident Mode of Arrival: Ambulatory Source of Information: Patient Limitations: No Limitations Time Seen by Provider: 07/18/23 09:28 Description of Symptoms (Recalled from Triage Doc. by RN): left side pain that radiates into her stomach HEENT Symptoms (Recalled from RN notes): No Resp Symptoms (Recalled from RN notes): No Skin Symptoms (Recalled from RN notes): No MS Symptoms (Recalled from RN notes): No Functional Status (Recalled from RN notes): n/a History of Present Illness Provider Complaint: Patient states that she has been having pain in her left side that is going into her stomach for the last couple of days States that feels like like a spasm and her stomach feels tight States that she thinks she may have a kidney infection or something but the pain in her left side will sometimes happen on the right and then feels like it wraps around her stomach and feels sore in her left lower abdomen Related Data Allergies Allergy/AdvReac Type Severity Reaction Status Date / Time No Known Allergies Allergy Verified 07/18/23 09:25 Worker's Comp Is this a Worker's Comp case?: No [facility] Disclaimer: The information contained in this section may have been updated after the patient was seen, as this information can be updated by other users. Medical History (Updated 07/18/23 @ 09:53 by Mary Whiteside APRN) delivery delivered Surgical History H/O: hysterectomy Social History Smoking Status: Never smoker alcohol intake: never substance use type: denies use current occupational status: employed Travel in the last 8 weeks: None current occupational exposures/hazards: Yes caffeine: No ROS Obtained: Yes All systems reviewed & no additional complaints except as documented and Yes Systems reviewed as appropriate & no additional complaints except as documented Constitutional Constitutional: Reports system reviewed and no additional complaints, except as documented, Reports as per HPI and Denies fever(s) ENT Ears, Nose, Mouth, and Throat: Reports system reviewed and no additional complaints, except as documented and Reports as per HPI Cardiovascular Cardiovascular: Reports system reviewed and no additional complaints, except as documented, Reports as per HPI and Denies chest pain Respiratory Respiratory: Reports system reviewed and no additional complaints, except as documented and Reports as per HPI Gastrointestinal Gastrointestingal: Reports system reviewed and no additional complaints, except as documented, as per HPI and abdominal pain (pain on left side that goes around stomach and into her left lower abdomen) Physical Exam General General appearance: alert and in no apparent distress ENT ENT exam: Present mucous membranes moist Respiratory Respiratory exam: Present normal lung sounds bilaterally; Absent respiratory distress or wheezes Cardiovascular Cardiovascular exam: Present regular rate, normal rhythm and normal heart sounds Abdominal Exam Abdominal exam: Present soft and tenderness (reports tenderness on left side into left lower abdomen); Absent distention Neurological Exam Neurological
[2023-07-18 09:31] LABS: Microscopic, Urine URINE MICROSCOPIC (MICROSCOPIC)
[2023-07-18 09:34] LABS: Appearance,Urine CLEAR (Clear); Bilirubin,Urine Negative (Negative); Blood, Urine TRACE-I (Negative); Color,Urine YELLOW (Yellow); Glucose,Urine (UA) Negative (Negative); Ketones,Urine Negative (Negative); Leukocyte Esterase,Urine Negative (Negative); Nitrate,Urine Negative (Negative); Protein,Urine Negative (Negative); Specific Gravity, Urine 1.015 (1.005-1.030); Urobilinogen,Urine 0.2 EU/dl (0.2)
[2023-07-18 09:46] LABS: Bacteria,Urine Trace /lpf; RBC,Urine Occasional #/hpf (0-3); WBC,Urine Occasional #/hpf (0-3)
[2023-07-18 09:56] VITALS: BP 107/68; PULSE 76; RESP 16; TEMP 36.5; O2SAT 98
== END 2023-07-18 09:56 | disposition home or self-care (01) ==
PROVIDERS: Emergency Provider Nurse Practitioner; PCP Emergency Medicine
DX: R10.30 Lower abdominal pain, unspecified (principal); M54.59 Other low back pain; M62.838 Other muscle spasm
CPT/HCPCS: 81001; 99212; 99213; G0463

== ENCOUNTER 2024-04-22 08:44 | Emergency (ER) | payer SELFPAY ==
[2024-04-22 08:50] VITALS: BP 119/70; PULSE 70; RESP 18; TEMP 36.8; O2SAT 98; BMI 32.8
--- NOTE | 2024-04-22 09:13 | ED_ITS ---
Discharge Plan Disposition Patient Disposition: Home, Self-Care Condition: Good Prescriptions Prescriptions: New azithromycin [Zithromax] 250 mg tablet 250 mg PO UD DOSE PK Qty: 6 0RF Rx Instructions: Take two (2) tablets today, then one (1) tablet days #2 thru #5 methylprednisolone 4 mg Tablets,Dose Pack 4 mg PO DIRECTED 6 Days Qty: 21 0RF Rx Instructions: Take 1 pack as directed for 6 days Referrals Follow up/Referrals: Provider,Referral, MD [Primary Care Provider] - See instructions Activity Restrictions/Add. Instructions Additional Instructions/Restrictions: Drink plenty of fluids. Take tylenol or ibuprofen for pain or fever. Take the medications as directed. Follow up with your regular doctor. GO TO THE ER FOR ANY WORSENING SYMPTOMS Clinical Impressions Clinical Impression: Otitis media Stand Alone Forms Stand Alone Forms: Work/School Release Instructions Patient Instructions: Middle Ear Infection, Methylprednisolone, Azithromycin Discharge ED Provider: Moody Cao [facility] General Stated complaint: right ear pain Mode of Arrival: Ambulatory Source of Information: Patient Limitations: No Limitations Time Seen by Provider: 04/22/24 09:13 Description of Symptoms (Recalled from Triage Doc. by RN): Pt's symptoms are right ear pain. HEENT Symptoms (Recalled from RN notes): Yes Resp Symptoms (Recalled from RN notes): No Skin Symptoms (Recalled from RN notes): No MS Symptoms (Recalled from RN notes): No Functional Status (Recalled from RN notes): n/a Related Data Previous Rx's Medication Instructions Recorded azithromycin 250 mg tablet 250 mg PO UD DOSE PK #6 tabs 04/22/24 (Zithromax) methylprednisolone 4 mg tablets in 4 mg PO DIRECTED 6 days #21 tabs 04/22/24 a dose pack Allergies Allergy/AdvReac Type Severity Reaction Status Date / Time No Known Allergies Allergy Verified 04/22/24 09:00 Worker's Comp Is this a Worker's Comp case?: No [facility] Disclaimer: The information contained in this section may have been updated after the patient was seen, as this information can be updated by other users. Medical History (Updated 04/22/24 @ 09:27 by Moody Cao APRN) delivery delivered Surgical History H/O: hysterectomy Social History Smoking Status: Never smoker alcohol intake: never substance use type: denies use current occupational status: employed Travel in the last 8 weeks: None current occupational exposures/hazards: Yes caffeine: No ROS Obtained: Yes All systems reviewed & no additional complaints except as documented Constitutional Constitutional: Denies chills, Reports fever(s) and Reports poor appetite Eyes Eyes: Denies eye discharge ENT Ears, Nose, Mouth, and Throat: Denies ear discharge, Reports otalgia, Denies hearing loss, Denies sinus pain and Reports sore throat Cardiovascular Cardiovascular: Denies chest pain and Denies dyspnea Respiratory Respiratory: Denies chest congestion, Reports cough and Denies dyspnea Gastrointestinal Gastrointestingal: Denies abdominal pain, diarrhea, nausea or vomiting Musculoskeletal Musculoskeletal: Denies arthralgias Integumentary/Breasts Skin/Breast: Denies rash Physical Exam General General appearance: alert and in no apparent distress Head Head exam: atraumatic, normocephalic and normal inspection Eye Eye exam: Present normal appearance; Absent PERRL or EOMI ENT ENT exam: Present mucous membranes moist and normal external ear exam Expanded ENT Exam TM/Canal exam: Bilateral TM: erythema, bulging and effusion Nose exam: Absent sinus tenderness Nasal speculum exam: Bilateral: normal Mouth exam: Present normal external inspection and other; Absent drooling Teeth exam: Present normal inspection Throat exam: Present tonsillar erythema and tonsillomegaly Neck Neck exam: Present normal inspection, full ROM and trachea midline; Absent tenderness, meningismus or lymphadenopathy Chest Chest inspection: Present normal inspection and symmetric chest wall rise; Absent tenderness Respiratory Respiratory exam: Present normal lung sounds bilaterally; Absent respiratory distress, wheezes or stridor Cardiovascular Cardiovascular exam: Present regular rate, normal rhythm and normal heart sounds; Absent tachycardia or irregular rhythm Abdominal Exam Abdominal exam: Present soft and normal bowel sounds; Absent distention, tenderness, guarding, rebound or rigidity Extremities Exam Extremities exam: Present normal inspection and normal capillary refill; Absent tenderness, joint swelling or calf tenderness Back Exam Back exam: Present normal inspection and full ROM; Absent tenderness, CVA tenderness (R) or CVA tenderness (L) Neurological Exam Neurological exam: Present alert, oriented X3, CN II-XII intact, normal gait and reflexes normal; Absent motor sensory deficit Psychiatric Psychiatric exam: Present normal affect and normal mood Skin Skin exam: Present warm, dry, intact and normal color Lymphatic Lymphatic Findings: no adenopathy Medical Decision Making Medical Records Medical records reviewed: No I reviewed the patient's medical records. Sai Inquiry Pt receiving controlled substance: No Vital Signs: 04/22/24 08:50 Temperature 98.2 F Temperature Source Oral Pulse Rate [Right Radial] 70 Respiratory Rate 18 Blood Pressure [Right Arm] 119/70 Blood Pressure Mean [Right Arm] 86 Blood Pressure Source [Right Arm] Automatic Cuff Blood Pressure Position [Right Arm] Sitting 02 Sat by Pulse Oximetry 98 Oxygen Delivery Method Room Air
[2024-04-22 09:28] VITALS: BP 119/70; PULSE 70; RESP 18; TEMP 36.8; O2SAT 98
== END 2024-04-22 09:28 | disposition home or self-care (01) ==
PROVIDERS: Emergency Provider Nurse Practitioner Family
DX: H66.91 Otitis media, unspecified, right ear (principal)
CPT/HCPCS: 99212; 99214; G0463

== ENCOUNTER 2024-07-03 09:36 | Emergency (ER) | payer SELFPAY ==
[2024-07-03 09:45] VITALS: BP 112/72; PULSE 60; RESP 21; TEMP 36.5; O2SAT 98; BMI 34.0
--- NOTE | 2024-07-03 10:02 | ED_ITS ---
Discharge Plan Disposition Patient Disposition: Home, Self-Care Condition: Good Prescriptions Prescriptions: New ondansetron 4 mg tablet,disintegrating 4 mg PO Q8H PRN (Reason: nausea and vomiting) Qty: 10 0RF Referrals Follow up/Referrals: Provider,Referral, MD [Primary Care Provider] - See instructions Activity Restrictions/Add. Instructions Additional Instructions/Restrictions: Drink extra fluids with and between meals. If you have difficulty drinking, try very small amounts of water or suck on ice chips. ? Avoid fruit juices, as these do not replace minerals and can actually increase diarrhea. ? Children and adults can use sports drinks to replenish electrolytes. Younger children and infants should use products formulated for children, like oral rehydration solutions. ? Eat food in small amounts and let your stomach recover. ? Get lots of rest. You may feel tired or weak. ? No greasy or fried foods for the next 24-48 hours BRAT diet Bananas Rice Apples and [place] ? Make sure to drink plenty of liquids ? Return if needed ? Straight to ER if any life threatening symptoms ? Zofran as prescribed ? You was given an outpatient order for diarrhea panel, please collect specimen and bring back to outpatient lab then call back to the [facility] or follow up with family doctor for results ? Follow up with family doctor in the next 48-72 hours if no improvement or any worsening of symptoms Clinical Impressions Clinical Impression: Viral syndrome Stand Alone Forms Stand Alone Forms: Work/School Release Instructions Patient Instructions: DI for Nausea -- Adult, DI for Vomiting -- Adult, Diarrhea Print Language Print Language: Mongolian Discharge ED Provider: Mary Whiteside [facility] – [place], [place] HPI General Stated complaint: vomiting, headache, congestions Mode of Arrival: Ambulatory Source of Information: Patient and Significant Other Limitations: No Limitations Time Seen by Provider: 07/03/24 10:03 Description of Symptoms (Recalled from Triage Doc. by RN): PATIENT C/O VOMITING, DIARRHEA, AND CONGESTION SINCE LAST NIGHT HEENT Symptoms (Recalled from RN notes): Yes Resp Symptoms (Recalled from RN notes): No Skin Symptoms (Recalled from RN notes): Yes MS Symptoms (Recalled from RN notes): No Functional Status (Recalled from RN notes): WNL History of Present Illness Provider Complaint: Patient states that she started last night with nausea, vomiting, diarrhea and nasal congestion thinks she may have a stomach bug so she came in to get checked Related Data Previous Rx's ?Medication ?Instructions ?Recorded ondansetron 4 mg disintegrating 4 mg PO Q8H PRN nausea and 07/03/24 tablet vomiting #10 tabs Allergies Allergy/AdvReac Type Severity Reaction Status Date / Time No Known Allergies Allergy Verified 04/22/24 09:00 Worker's Comp Is this a Worker's Comp case?: No [facility] Disclaimer: The information contained in this section may have been updated after the patient was seen, as this information can be updated by other users. Medical History (Updated 07/03/24 @ 10:10 by Mary Whiteside APRN) Migraine Urinary tract infection delivery delivered Surgical History H/O: hysterectomy Social History Smoking Status: Never smoker alcohol intake: never substance use type: denies use current occupational status: employed Travel in the last 8 weeks: None current occupational exposures/hazards: Yes caffeine: No ROS Obtained: Yes All systems reviewed & no additional complaints except as documented and Yes Systems reviewed as appropriate & no additional complaints except as documented Constitutional Constitutional: Reports system reviewed and no additional complaints, except as documented, Reports as per HPI and Denies fever(s) ENT Ears, Nose, Mouth, and Throat: Reports system reviewed and no additional complaints, except as documented, Reports as per HPI and Reports nasal congestion Cardiovascular Cardiovascular: Reports system reviewed and no additional complaints, except as documented and Reports as per HPI Respiratory Respiratory: Reports system reviewed and no additional complaints, except as documented and Reports as per HPI Gastrointestinal Gastrointestingal: Reports system reviewed and no additional complaints, except as documented, as per HPI, diarrhea, nausea and vomiting; Denies abdominal pain, belching, bloating, cramping, hematochezia or melena Physical Exam General General appearance: alert and in no apparent distress ENT ENT exam: Present mucous membranes moist Respiratory Respiratory exam: Present normal lung sounds bilaterally; Absent respiratory distress or wheezes Cardiovascular Cardiovascular exam: Present regular rate, normal rhythm and normal heart sounds Abdominal Exam Abdominal exam: Present soft and normal bowel sounds; Absent distention or tenderness Neurological Exam Neurological exam: Present alert, oriented X3 and normal gait Medical Decision Making Sai Inquiry Pt receiving controlled substance: No Sai was queried for this patient: No Vital Signs: 07/03/24 09:45 Temperature 97.7 F Temperature Source Oral Pulse Rate [Left Brachial] 60 Respiratory Rate 21 Blood Pressure [Left Arm] 112/72 Blood Pressure Mean [Left Arm] 85 Blood Pressure Source [Left Arm] Automatic Cuff Blood Pressure Position [Left Arm] Sitting 02 Sat by Pulse Oximetry 98 Oxygen Delivery Method Room Air
[2024-07-03 10:11] VITALS: BP 112/72; PULSE 60; RESP 21; TEMP 36.5; O2SAT 98
== END 2024-07-03 10:16 | disposition home or self-care (01) ==
PROVIDERS: Emergency Provider Nurse Practitioner
DX: R11.2 Nausea with vomiting, unspecified (principal); R19.7 Diarrhea, unspecified; R09.81 Nasal congestion; B34.9 Viral infection, unspecified
CPT/HCPCS: 99212; 99214; G0463

== ENCOUNTER 2024-09-10 06:57 | Emergency (ER) | payer SELFPAY ==
[2024-09-10] VITALS (12 sets, daily range): BP systolic 87–126; BP diastolic 44–76; PULSE 57–87; RESP 16; TEMP 36.6; O2SAT 94–99; BMI 32.8
--- NOTE | 2024-09-10 07:15 | CT_ITS ---
FINAL REPORT CLINICAL HISTORY: abd pain COMPARISON: None FINDINGS: CT OF THE ABDOMEN AND PELVIS WITH CONTRAST Axial CT images of the abdomen and pelvis were obtained after the administration of IV contrast. Coronal reformatted images were also obtained and reviewed.This study was performed with techniques to keep radiation doses as low as reasonably achievable (ALARA). Individualized dose reduction techniques using automated exposure control or adjustment of mA and/or kV according to the patient''s size were employed. Abdomen: The lung bases are clear. The heart is normal in size. There is wall thickening of the distal esophagus favored to be inflammatory. Small hiatal hernia is noted. The liver has an unremarkable appearance, without evidence of mass or biliary ductal dilatation. The spleen is unremarkable. No adrenal mass is present. The pancreas has an unremarkable appearance. The kidneys are normal, without evidence of mass or hydronephrosis. The aorta is normal in caliber. There is no free fluid or adenopathy. No mass or abnormal fluid collection is seen. Pelvis: The appendix is normal. The urinary bladder is unremarkable. The patient is post hysterectomy. There is a presumed right ovarian cyst measuring up to 22 mm. No inflammatory process is seen. There is no evidence of bowel obstruction. IMPRESSION: Wall thickening distal esophagus, favor inflammatory. Recommend upper endoscopy. Presumed right ovarian cyst. Reviewed, Interpreted and Dictated by Robbie Martino III, MD Transcribed by Cecile Triana Authenticated and [facility]
--- NOTE | 2024-09-10 07:25 | PC.NURSE ---
respiratory called for notification of VBG tube in lab.
--- NOTE | 2024-09-10 07:31 | HMH.EDGENADL ---
Discharge Plan Disposition Patient Disposition: Home, Self-Care Chief Complaint: Abdominal Pain Prescriptions Prescriptions: No Action No Known Home Medications Referrals Follow up/Referrals: Umesh Amor II, MD [Staff Physician] - See instructions Provider,MD Marisela [Primary Care Provider] - See instructions Activity Restrictions/Add. Instructions Additional Instructions/Restrictions: Call your family doctor to establish care for this visit to the emergency department and schedule follow-up within 48 hours to ensure improvement. If you have any worsening of your condition or any other concerning signs or symptoms, return to the emergency department or your primary care doctor for further evaluation. Acid medication every night before bed for 6 weeks. Follow-up with gastroenterology if not improving. Clinical Impressions Clinical Impression: Esophagitis, Vomiting Instructions Patient Instructions: DI for Acute Abdominal Pain Print Language Print Language: Yakut Discharge ED Provider: Kulwant Vega General Adult HPI General Chief complaint: Abdominal Pain Stated complaint: abd pain, vomiting, headache Time Seen by Provider: 09/10/24 07:01 Mode of Arrival: Ambulatory Source of Information: Patient Limitations: No Limitations Description of Symptoms (Recalled from ER Triage Doc. by RN): Pt. presents to the ED with complaints of abdominal pain, lower abdominal cramping starting on the left and going across her lower abdomen. She currently rates the pain 4/10 but states it was alot higher before she arrived. She also complains of nausea and vomitning, denies diarrhea. History of Present Illness HPI narrative: Please note that above description of symptoms, in this electronic medical record under categorization of recalled from ER triage doctor by RN are reflective of an initial nursing assessment, however, is not reflective of my full history and physical exam that was personally taken and clarified. Consequentially, this preceding description of symptoms, which may include the patient's categorized chief complaint in the EMR, do not reflect my personal clinical impression, and the ultimate description of history of present illness and patient stated complaints should be deferred to this section of the note. Unless stated otherwise or congruent with this section of the note, additional signs, symptoms, or incongruence should be interpreted as inaccurate with my clinical impression. Related Data Home Medications ?Medication ?Instructions ?Recorded ?Confirmed No Known Home Medications 09/10/24 09/10/24 Allergies Allergy/AdvReac Type Severity Reaction Status Date / Time No Known Allergies Allergy Verified 04/22/24 09:00 [facility] Disclaimer: The information contained in this section may have been updated after the patient was seen, as this information can be updated by other users. Medical History (Updated 09/10/24 @ 12:42 by Kulwant Vega MD) Migraine Urinary tract infection delivery delivered Surgical History History of section H/O: hysterectomy Social History Smoking Status: Never smoker alcohol intake: never substance use type: denies use current occupational status: employed Travel in the last 8 weeks: None current occupational exposures/hazards: Yes caffeine: No Other Medical History Have you received the Flu Vaccine for this season: No Have you received the Pneumonia Vaccine: No ROS Obtained: Yes All systems reviewed & no additional complaints except as documented Physical Exam General General appearance: alert and anxious Head Head exam: atraumatic and normocephalic Eye Eye exam: Present normal appearance, PERRL and EOMI Neck Neck exam: Present normal inspection, full ROM and trachea midline Respiratory Respiratory exam: Absent respiratory distress, wheezes, stridor, accessory muscle use or prolonged expiratory phase Cardiovascular Cardiovascular exam: Present other (Pulses equal symmetric in upper and lower extremities) Abdominal Exam Abdominal exam: Present soft and tenderness; Absent distention, guarding, rebound, rigidity or pulsatile mass Abdominal tenderness: Present RLQ, LLQ and suprapubic Extremities Exam Extremities exam: Absent edema Back Exam Back exam: Present CVA tenderness (R); Absent CVA tenderness (L) Neurological Exam Neurological exam: Present alert, oriented X3 and CN II-XII intact; Absent motor sensory deficit Skin Skin exam: Present warm and dry; Absent diaphoresis or erythema Medical Decision Making Medical Records Medical records reviewed: Yes I reviewed the patient's medical records. Screening: Per USPSTF and CDC recommendations, given the prevalence of disease in our region, it is our hospital?s policy to screen for HIV and viral Hepatitis for all patients aged 18 and over and those with ongoing risk factors. Sai Inquiry Pt receiving controlled substance: No Sai was queried for this patient: No Vital Signs: 09/10/24 07:12 09/10/24 07:31 09/10/24 08:36 Temperature 97.9 F Temperature Source Oral Pulse Rate 66 64 Pulse Rate [Right Brachial] 87 Respiratory Rate 16 Blood Pressure 118/71 100/66 L Blood Pressure [Right Arm] 126/76 Blood Pressure Mean Blood Pressure Mean [Right Arm] 92 Blood Pressure Source [Right Arm] Automatic Cuff Blood Pressure Position [Right Arm] Sitting 02 Sat by Pulse Oximetry 99 97 98 Oxygen Delivery Method Room Air Room Air 09/10/24 09:00 09/10/24 09:30 09/10/24 10:00 Temperature Temperature Source Pulse Rate 59 L 60 65 Pulse Rate [Right Brachial] Respiratory Rate Blood Pressure 94/62 L 106/69 L 112/73 Blood Pressure [Right Arm] Blood Pressure Mean 83 Blood Pressure Mean [Right Arm] Blood Pressure Source [Right Arm] Blood Pressure Position [Right Arm] 02 Sat by Pulse Oximetry 99 94 L 99 Oxygen Delivery Method Room Air Room Air 09/10/24 10:33 09/10/24 11:01 09/10/24 11:30 Temperature Temperature Source Pulse Rate 73 70 70 Pulse Rate [Right Brachial] Respiratory Rate Blood Pressure 119/44 L 92/58 L 87/68 L Blood Pressure [Right Arm] Blood Pressure Mean 86 69 Blood Pressure Mean [Right Arm] Blood Pressure Source [Right Arm] Blood Pressure Position [Right Arm] 02 Sat by Pulse Oximetry 98 97 96 Oxygen Delivery Method 09/10/24 12:00 09/10/24 12:30 Temperature Temperature Source Pulse Rate 57 L 64 Pulse Rate [Right Brachial] Respiratory Rate Blood Pressure 92/68 L 112/61 Blood Pressure [Right Arm] Blood Pressure Mean Blood Pressure Mean [Right Arm] Blood Pressure Source [Right Arm] Blood Pressure Position [Right Arm] 02 Sat by Pulse Oximetry 97 98 Oxygen Delivery Method Lab Data Lab Results 09/10/24 07:24: WBC 8.8, RBC 4.28, Hgb 13.1, Hct 39.4, MCV 92.0, MCH 30.7, MCHC 33.4, RDW 13.5, Plt Count 316, MPV 7.5, Neut % (Auto) 75.0, Lymph % (Auto) 17.7, [place]zie % (Auto) 4.9, Eos % (Auto) 2.1, Baso % (Auto) 0.4, Neut # (Auto) 6.6, Lymph # (Auto) 1.5, Benzie # (Auto) 0.4, Eos # (Auto) 0.2, Baso # (Auto) 0.0, PT 10.8, INR 0.96, APTT 26.9, Sodium 139, Potassium 4.0, Chloride 110 H, Carbon Dioxide 23, Anion Gap 10.0, BUN 16, Creatinine 0.70, Estimated GFR 90, Est GFR ( Amer) 109, Glucose 99, Hemoglobin A1c 5.5, Lactate 0.7, Calcium 8.4, Total Bilirubin 0.7, AST 23, ALT 14, Alkaline Phosphatase 80, Troponin I < 0.01, Total Protein 6.5, Albumin 3.8, Globulin 2.7, Albumin/Globulin Ratio 1.4, Lipase 42, Urine Color Yellow, Urine Appearance Cloudy, Urine pH 6.0, Ur Specific [place] 1.025, Urine Protein Negative, Urine Glucose (UA) Negative, Urine Ketones Negative, Urine Blood 1+ A, Urine Nitrate Negative, Urine Bilirubin Negative, Urine Urobilinogen 0.2, Ur Leukocyte Esterase Negative, Urine RBC Occasional, Urine WBC None, Ur Squamous Epith Cells 10-20, Urine Bacteria 1+, HIV 1&2 Antibody Rapid Nonreactive 09/10/24 07:30: VBG pH 7.35, VBG pCO2 31.3 L, VBG pO2 81.7 H, VBG HCO3 17.0 L, VBG Total CO2 17.9 L, VBG O2 Saturation 95.2 H, VBG Base Excess -8.6 L, VBG Lactic Acid 0.7 09/10/24 10:34: Troponin I < 0.01 09/10/24 07:24 09/10/24 07:24 Orders (Tests/Meds): ED MEDICATIONS Discontinued Medications Generic Name Dose Route Start Last Admin Trade Name Nav PRN Reason Stop Dose Admin Iopamidol 75 ml 09/10/24 08:51 09/10/24 08:52 Iopamidol-370 (76%);100ml Bottle IV 09/10/24 08:52 75 ml ONCE ONE Administration Ketorolac Tromethamine 30 mg 09/10/24 08:00 09/10/24 08:03 Ketorolac 30mg/Ml Vial IV 09/10/24 08:01 30 mg ONCE ONE Administration Ondansetron HCl 4 mg 09/10/24 08:00 09/10/24 08:03 Ondansetron 4mg/2ml Vial IV 09/10/24 08:01 4 mg ONCE ONE Administration Sodium Chloride 10 ml 09/10/24 08:51 09/10/24 08:52 Sodium Chloride 0.9% 10ml Syr (Rad Only) IV 09/10/24 08:52 10 ml ONCE ONE Administration ORDERS Category Date Time Status CT abdomen pelvis w con Stat Cat Scan 09/10/24 07:15 Taken POCUS Point of Care (ER Only) Stat Exams 09/10/24 10:03 Completed Activated Partial Thrombo Time Routine Lab 09/10/24 07:24 Completed Complete Blood Count Auto Diff Routine Lab 09/10/24 07:24 Completed Comprehensive Metabolic Panel Routine Lab 09/10/24 07:24 Completed HIV (1&2) Antibody Rapid Routine Lab 09/10/24 07:24 Completed Hemoglobin A1C Routine Lab 09/10/24 07:24 Completed Hep C Ab with Reflex to RNA Routine Lab 09/10/24 07:24 Received Lactic Acid Routine Lab 09/10/24 07:24 Completed Lipase Routine Lab 09/10/24 07:24 Completed Prothrombin Time INR Routine Lab 09/10/24 07:24 Completed Troponin I Routine Lab 09/10/24 07:24 Completed Troponin I Routine Lab 09/10/24 10:34 Completed Troponin I Routine Lab 09/10/24 13:24 Ordered Urinalysis and Microscopic Routine Lab 09/10/24 07:24 Completed VBG [Venous Blood Gas] Stat RT 09/10/24 07:30 Completed Medical Decision Narrative: 44-year-old female history of section presenting with abdominal pain. Patient states that she started having abdominal pain last night, 09/09. Today, 09/10, patient began feeling nauseated. Went to work and at work vomited multiple times. States that the vomit looks like phlegm, clear to yellow. No blood or bile. Patient has not been having diarrhea. Still passing gas. Last bowel movement was yesterday, 09/09. No fevers or chills, urinary symptoms, vaginal discharge or bleeding, or any other relevant complaints. Has not taken anything for the pain. History was obtained via conversation with patient. On arrival, patient hemodynamically stable, alert, oriented x4, appropriate, GCS 15, moving all extremities spontaneously, pupils equal and reactive to light. Full physical exam performed and significant for 44-year-old woman in no acute distress. Appears anxious. Abdomen is soft, nondistended, but tender in bilateral lower quadrants. No overlying skin changes. She does have right flank tenderness as well to percussion. Differential includes PUD, gastritis, enteritis, gastroenteritis, pancreatitis, SBO, colitis, diverticulitis, nephrolithiasis, UTI, , cholecystitis, choledocholithiasis, appendicitis, hepatitis, torsion, aortic pathology, mesenteric ischemia among others. Patient placed on continuous cardiac monitoring and continuous pulse ox with initial blood pressure 112/61, heart rate 64, saturation percent on room air. Patient was given Toradol and Zofran for symptomatic management and correction of underlying abnormalities. Workup independently interpreted and significant for nonactionable hematologic labs. Negative lactate, negative lipase. Troponin negative, urinalysis without concern for UTI.. On independent interpretation of imaging, patient has esophageal thickening, but no evidence of other intra-abdominal abnormality. Incidental findings of right ovarian cyst and a large gallbladder. See radiology read for full review of final results. Bedside Herrera ultrasound was performed, normal right upper quadrant findings. On reevaluation, patient states that she is feeling much better. Ready go home. 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 Because patient at baseline without signs or symptoms of clinical decompensation, deemed appropriate for discharge. Results were relayed to patient who voiced understanding and were agreeable to outpatient management and follow up. I discussed my clinical impression with patient and answered all questions. At this time, the evidence for any other entities in the differential is insufficient to warrant any further testing or ED observation. This was explained as well. Advisory was given that persistent or worsening symptoms require further evaluation. I confirmed the understanding of this discussion. Adult High School Instructor disclaimer Much of this encounter note is an electronic towel distributor spoken language to printed text. Electronic towel distributor of the spoken language may permit errors. Although I have reviewed the note, some errors may still exist. Critical Care Critical Care Time Critical Care Time: No
[2024-09-10 08:02] LABS: Microscopic, Urine URINE MICROSCOPIC (MICROSCOPIC)
[2024-09-10] MEDS: ONDANSETRON 4MG/2ML VIAL 4 MG IV (08:03)
[2024-09-10] MEDS: KETOROLAC 30MG/ML VIAL 30 MG IV (08:03)
[2024-09-10 08:05] LABS: Basophils % 0.4 % (0.1-2.0); Eosinophils # 0.2 K/mm3 (0.0-0.4); Eosinophils % 2.1 % (0.1-12.0); Hematocrit 39.4 % (37.0-47.0); Hemoglobin 13.1 g/dL (12.2-16.2); Lymphocytes # 1.5 K/mm3 (0.7-4.5); Lymphocytes % 17.7 % (10-50); Mean Corpuscular HGB Conc 33.4 g/dL (31.8-35.4); Mean Corpuscular Hemoglobin 30.7 pg (27.0-31.2); Mean Platelet Volume 7.5 fl (7.4-10.4); Monocytes # 0.4 K/mm3 (0.1-1.0); Monocytes % 4.9 % (1.7-9.3); Neutrophils # 6.6 K/mm3 (1.8-7.8); Platelet Count 316 K/mm3 (142-424); Red Blood Count 4.28 M/mm3 (4.20-5.40); Red Cell Distribution Width 13.5 % (11.5-17.5); White Blood Count 8.8 K/mm3 (4.8-10.8)
[2024-09-10 08:08] LABS: Appearance,Urine CLOUDY (Clear); Bilirubin,Urine Negative (Negative); Blood, Urine 1+ (Negative); Glucose,Urine (UA) Negative (Negative); Ketones,Urine Negative (Negative); Leukocyte Esterase,Urine Negative (Negative); Nitrate,Urine Negative (Negative); Protein,Urine Negative (Negative); Specific Gravity, Urine 1.025 (1.005-1.030); Urobilinogen,Urine 0.2 EU/dl (0.2)
[2024-09-10 08:11] LABS: Color,Urine Yellow (Yellow)
[2024-09-10 08:12] LABS: Alanine Aminotransferase 14 U/L (12-78); Albumin Level 3.8 g/dl (3.5-5.0); Albumin/Globulin Ratio 1.4 (1.1-1.8); Alkaline Phosphatase 80 U/L (38-126); Aspartate Amino Transferase 23 U/L (14-36); Bilirubin,Total 0.7 mg/dl (0.2-1.3); Blood Urea Nitrogen 16 mg/dl (7-17); Calcium 8.4 mg/dl (8.4-10.2); Carbon Dioxide 23 mmol/L (22.0-30.0); Chloride 110 mmol/L (98-107); Estimated Glomerular Filt Rate 90 ml/min (>60); GFR (African American) 109 ML/MIN (>60); Globulin 2.7 g/dL (1.3-3.2); Glucose 99 mg/dl (74-100); Lipase 42 U/L (23-300); Sodium 139 mmol/L (136-145); Total Protein,Serum 6.5 g/dl (6.3-8.2)
--- NOTE | 2024-09-10 08:12 | PC.NURSE ---
maris loomis orders to jaspreet in lab. lab orders are not crossing over in [facility].
[2024-09-10 08:13] LABS: Activated Partial Thrombo Time 26.9 seconds (22.8-30.6); INR 0.96 (0.9-1.1); Prothrombin Time 10.8 seconds (10.1-12.5)
[2024-09-10 08:17] LABS: Lactic Acid 0.7 mmol/L (0.7-2.1)
[2024-09-10 08:28] LABS: Troponin I < 0.01 ng/ml (0.00-0.034)
[2024-09-10 08:29] LABS: Bacteria,Urine 1+ /lpf; RBC,Urine Occasional #/hpf (0-3)
[2024-09-10] MEDS: IOPAMIDOL-370 (76%);100ML BOTTLE 75 ML IV (08:52)
[2024-09-10] MEDS: SODIUM CHLORIDE 0.9% 10ML SYR (RAD ONLY) 10 ML IV (08:52)
[2024-09-10 09:19] LABS: Hemoglobin A1C 5.5 % (4.0-6.0)
[2024-09-10 10:17] LABS: HIV (1&2) Antibody Rapid NONREACTIVE (NONREACTIVE)
[2024-09-10 11:11] LABS: Troponin I < 0.01 ng/ml (0.00-0.034)
[2024-09-10 11:25] LABS: Lactate Venous 0.7 mmol/L (0.4-2.0); VBG Base Excess -8.6 mmol/L (-2.4-2.3); VBG Oxygen Saturation 95.2 % (50-70); VBG PCO2 31.3 mmol/L (35-51); VBG PH 7.35 mmol/L (7.31-7.41); VBG PO2 81.7 mmol/L (28-40); VBG Total CO2 17.9 mmol/L (23-27)
--- NOTE | 2024-09-10 11:25 | PC.NURSE ---
called radiology regarding scan results.
[2024-09-11 08:22] LABS: HCV Ab Non Reactive (Non Reactive)
== END 2024-09-10 12:56 | disposition home or self-care (01) ==
PROVIDERS: Emergency Provider Emergency Medicine
DX: K20.90 Esophagitis, unspecified without bleeding (principal); R10.30 Lower abdominal pain, unspecified; R11.2 Nausea with vomiting, unspecified; R51.9 Headache, unspecified
CPT/HCPCS: 74177; 80053; 81001; 82803; 83036; 83605; 83690; 84484; 85025; 85610; 85730; 86803; 87389; 96374; 96375; 99285; J1885; J2405; Q9967